=== PATIENT | male | born 1955 | race Two or more races ===

== ENCOUNTER 2025-07-23 20:46 | Inpatient (IN) | payer MEDICAID, OTHER ==
[~2025-07-23] VITALS: Ht 180.3 cm; Wt 90.7 kg
[2025-07-23 21:49] LABS: CALCIUM, SERUM 8.7 mg/dL (8.5-10.1); CREATININE 0.9 mg/dL (0.6-1.3); SODIUM SERUM 144 mmol/L (136-145); UREA NITROGEN, BLOOD 12 mg/dL (7-18)
[2025-07-23] MEDS ORDERED: OLANZAPINE 10 MG VIAL IM ONE (21:59)
[2025-07-23 22:00] LABS: PLATELET COUNT (AUTO) 280 K/uL (150-450); RED BLOOD CELL COUNT(AUTO) 4.40 MIL/uL (4.5-6.0); RED CELL DISTRIBUTION WIDTH 16.5 % (11.5-15.0); WHITE BLOOD COUNT (AUTO) 9.3 K/uL (4.3-11.0)
[2025-07-23 22:02] LABS: ASPARTATE AMINOTRANSFERASE 16 U/L (15-37); TOTAL PROTEIN, SERUM 6.5 g/dL (6.4-8.2)
[2025-07-23] MEDS: OLANZAPINE 10 MG VIAL IM ONE (22:09)
[2025-07-23 22:30] LABS: APPEARANCE,URINE CLEAR (CLEAR); BLOOD, URINE NEGATIVE Ery/uL (NEGATIVE); LEUKOCYTE ESTERASE ,URINE NEGATIVE (NEGATIVE); NITRITE, URINE NEGATIVE (NEGATIVE); UGLUCOSE NEGATIVE (NEGATIVE)
[2025-07-23] MEDS ORDERED: QUET50TA PO (22:31)
[2025-07-23] MEDS ORDERED: FINA5TAB11 PO (22:31)
[2025-07-23] MEDS ORDERED: LEVO75TA7 PO (22:31)
[2025-07-23] MEDS ORDERED: FOLI0.4T6 PO (22:31)
[2025-07-23] MEDS ORDERED: HALO50AM2 IM (22:31)
[2025-07-23] MEDS ORDERED: ACET325T53 PO (22:31)
[2025-07-23] MEDS ORDERED: DIVA125C5 PO (22:31)
[2025-07-23] MEDS ORDERED: ATOR40TA PO (22:31)
[2025-07-23] MEDS ORDERED: BENZ1TAB7 PO (22:31)
[2025-07-23 22:37] LABS: AMPHETAMINE, URINE NEGATIVE (NEGATIVE); BARBITURATE, URINE NEGATIVE (NEGATIVE); BENZODIAZEPINE, URINE NEGATIVE (NEGATIVE); CANNABINOID, URINE NEGATIVE (NEGATIVE); COCCAINE, URINE NEGATIVE (NEGATIVE); OPIATE, URINE NEGATIVE (NEGATIVE)
[2025-07-24] MEDS ORDERED: TAMS-12 PO (03:23)
[2025-07-24] MEDS ORDERED: FOLI0.4T6 PO (03:25)
[2025-07-24] MEDS ORDERED: HALO5TAB PO (03:28)
[2025-07-24] MEDS ORDERED: TEMAZEPAM 7.5 MG CAPSULE PO PRN (03:30)
[2025-07-24] MEDS ORDERED: ACETAMINOPHEN 325 MG TABLET PO PRN (03:30)
[2025-07-24] MEDS ORDERED: MAG HYDROX/AL HYDROX/SIMETH 30 ML UDC PO PRN (03:30)
[2025-07-24] MEDS ORDERED: MAGNESIUM HYDROXIDE 30 ML UDC PO PRN (03:30)
[2025-07-24] MEDS ORDERED: LORAZEPAM 1 MG TABLET PO PRN (03:30)
[2025-07-24] MEDS: BLOOD SUGAR DIAGNOSTIC 1 EACH STRIP IN ONE (04:08)
[2025-07-24] MEDS ORDERED: ERYTHROMYCIN BASE OPHTH 3.5 GM TUBE EACHEYE SCH (11:30)
[2025-07-24] MEDS: LORAZEPAM 1 MG TABLET PO PRN (12:42)
[2025-07-24] MEDS: BENZTROPINE MESYLATE (1 MG) 1 MG TABLET PO SCH (13:42)
[2025-07-24 16:00] VITALS: BP 107/68; TEMP 98.3; O2SAT 100
[2025-07-24] MEDS: OLANZAPINE 10 MG VIAL IM PRN (19:28)
[2025-07-24 21:00] VITALS: BP 115/70; TEMP 98; O2SAT 99
[2025-07-25 08:00] VITALS: BP 139/78; TEMP 97.8; O2SAT 98
[2025-07-25 08:02] LABS: PLATELET COUNT (AUTO) 312 K/uL (150-450); RED BLOOD CELL COUNT(AUTO) 4.93 MIL/uL (4.5-6.0); RED CELL DISTRIBUTION WIDTH 16.6 % (11.5-15.0); WHITE BLOOD COUNT (AUTO) 8.3 K/uL (4.3-11.0)
[2025-07-25 08:18] LABS: CALCIUM, SERUM 8.9 mg/dL (8.5-10.1); CREATININE 0.9 mg/dL (0.6-1.3); SODIUM SERUM 145.0 mmol/L (136-145); UREA NITROGEN, BLOOD 18.0 mg/dL (7-18)
[2025-07-25 08:25] LABS: LDL 39.0 mg/dL (0-99)
[2025-07-25 08:40] LABS: VALPROIC ACID 7.0 ug/mL (50-100)
[2025-07-25] MEDS ORDERED: DIVA125T32 PO (11:45)
[2025-07-25 16:14] VITALS: BP 143/76; TEMP 98.6; O2SAT 99
[2025-07-25] MEDS: LORAZEPAM 1 MG TABLET PO PRN (18:14)
[2025-07-25] MEDS: DIVALPROEX SODIUM 125 MG CAP.SPRINK PO SCH (20:25)
[2025-07-25 22:04] VITALS: BP 147/80; TEMP 98.6; O2SAT 97
[2025-07-26 08:00] VITALS: BP 149/87; TEMP 98.3; O2SAT 100
[2025-07-26] MEDS: ERYTHROMYCIN BASE OPHTH 3.5 GM TUBE EACHEYE SCH (13:00)
[2025-07-26 16:00] VITALS: BP 139/74; TEMP 98.2; O2SAT 99
[2025-07-26 20:18] VITALS: BP 111/78; TEMP 99; O2SAT 100
[2025-07-27 08:00] VITALS: BP 154/85; TEMP 97.5; O2SAT 100
[2025-07-27 16:00] VITALS: BP 157/85; TEMP 97.9; O2SAT 100
[2025-07-27] MEDS: LORAZEPAM INJ 2 MG/ML VIAL IM STA (17:33)
[2025-07-27] MEDS: HALOPERIDOL LACTATE INJ 5 MG/ML VIAL IM STA (17:33)
[2025-07-28 08:00] VITALS: BP 152/83; TEMP 97.8; O2SAT 97
[2025-07-28 16:11] VITALS: BP 127/82; TEMP 98.1; O2SAT 98
[2025-07-28] MEDS: TEMAZEPAM 7.5 MG CAPSULE PO PRN (23:08)
[2025-07-29 08:00] VITALS: BP 122/69; TEMP 98.7; O2SAT 98
[2025-07-29] MEDS ORDERED: ACETAMINOPHEN 325 MG TABLET PO PRN (15:00)
[2025-07-29 16:00] VITALS: BP 161/84; TEMP 98.8; O2SAT 100
[2025-07-30] MEDS: LEVOTHYROXINE SODIUM 75 MCG TABLET PO SCH (06:36)
[2025-07-30] MEDS: LORAZEPAM INJ 2 MG/ML VIAL IM ONE (08:14)
[2025-07-30] MEDS: HALOPERIDOL LACTATE INJ 5 MG/ML VIAL IM ONE (08:14)
[2025-07-30] MEDS: FINASTERIDE (5 MG) 5 MG TABLET PO SCH (09:00)
[2025-07-30] MEDS: FOLIC ACID 1 MG TABLET PO SCH (09:00)
[2025-07-30] MEDS: TAMSULOSIN 0.4 MG CAP.SR.24H PO SCH (09:00)
[2025-07-30] MEDS: ATORVASTATIN 40 MG TABLET PO SCH (09:00)
[2025-07-30] MEDS: BENZTROPINE MESYLATE (1 MG) 1 MG TABLET PO SCH (09:00)
[2025-07-30 16:00] VITALS: BP 148/76; TEMP 98.2; O2SAT 99
[2025-07-30] MEDS: DIVALPROEX SODIUM 125 MG CAP.SPRINK PO SCH (20:36)
[2025-07-31 08:00] VITALS: BP 157/84; TEMP 97.7; O2SAT 95
[2025-07-31] MEDS ORDERED: ERYTHROMYCIN BASE OPHTH 3.5 GM TUBE EACHEYE SCH (11:30)
[2025-07-31 16:00] VITALS: BP 128/79; TEMP 98; O2SAT 99
[2025-07-31 20:24] VITALS: BP 150/92; TEMP 98.2; O2SAT 100
[2025-08-01 08:00] VITALS: BP 151/75; TEMP 98.7; O2SAT 97
[2025-08-01 16:00] VITALS: BP 109/58; TEMP 98.8; O2SAT 99
[2025-08-01 20:36] VITALS: BP 113/64; TEMP 98.8; O2SAT 97
[2025-08-02 08:00] VITALS: BP 144/78; TEMP 98.1; O2SAT 99
[2025-08-02 16:00] VITALS: BP 114/85; TEMP 98; O2SAT 100
[2025-08-02 20:00] VITALS: BP 150/83; TEMP 98.4; O2SAT 96
[2025-08-03 08:00] VITALS: BP 132/86; TEMP 98; O2SAT 98
[2025-08-03] MEDS: POLYVINYL ALCOHOL 15 ML BOTTLE LEFTEYE SCH (09:00)
[2025-08-03] MEDS: POLYVINYL ALCOHOL 15 ML BOTTLE EACHEYE SCH (13:00)
[2025-08-03 16:00] VITALS: BP 111/60; TEMP 98.8; O2SAT 98
[2025-08-03 20:11] VITALS: BP 144/76; TEMP 98.1; O2SAT 99
[2025-08-04] MEDS: ERYTHROMYCIN BASE OPHTH 3.5 GM TUBE EACHEYE SCH (11:22)
[2025-08-04 16:11] VITALS: BP 118/68; TEMP 98.1; O2SAT 98
[2025-08-04 20:09] VITALS: BP 128/72; TEMP 98.6; O2SAT 98
[2025-08-04] MEDS: DIVALPROEX SODIUM 125 MG CAP.SPRINK PO SCH (20:24)
[2025-08-05 07:44] VITALS: BP 146/68; TEMP 98.1; O2SAT 95
[2025-08-05 08:00] VITALS: BP 146/68; TEMP 98.1; O2SAT 95
[2025-08-05 15:58] VITALS: BP 122/55; TEMP 98.1; O2SAT 98
[2025-08-05 16:00] VITALS: BP 122/55; TEMP 98.1; O2SAT 98
[2025-08-05 20:13] VITALS: BP 124/88; TEMP 97.8; O2SAT 99
[2025-08-06 08:00] VITALS: BP 118/73; TEMP 97.8; O2SAT 100
[2025-08-06 16:00] VITALS: BP 105/69; TEMP 97.9; O2SAT 98
[2025-08-06] MEDS: BENZTROPINE MESYLATE (1 MG) 1 MG TABLET PO SCH (16:32)
[2025-08-06 19:41] VITALS: BP 117/70; TEMP 98; O2SAT 99
[2025-08-07 16:00] VITALS: BP 132/74; TEMP 98.8; O2SAT 96
[2025-08-07 20:00] VITALS: BP 124/76; TEMP 98.4; O2SAT 96
[2025-08-08 08:00] VITALS: BP 117/74; TEMP 98; O2SAT 98
[2025-08-08] MEDS: OLANZAPINE 10 MG VIAL IM PRN (09:05)
[2025-08-08 16:00] VITALS: BP 106/67; TEMP 97.9; O2SAT 100
[2025-08-08 19:56] VITALS: BP 122/69; TEMP 98.2; O2SAT 96
[2025-08-09 08:07] VITALS: BP 138/84; TEMP 97.5; O2SAT 99
[2025-08-09 16:00] VITALS: BP 100/56; TEMP 98.2; O2SAT 99
[2025-08-09 20:40] VITALS: BP 142/74; TEMP 98.2; O2SAT 98
[2025-08-09] MEDS: DIVALPROEX SODIUM 125 MG CAP.SPRINK PO SCH (22:58)
[2025-08-10 08:00] VITALS: BP 141/83; TEMP 98.7; O2SAT 98
[2025-08-10 16:00] VITALS: BP 119/86; TEMP 98.7; O2SAT 99
[2025-08-10 20:08] VITALS: BP 138/94; TEMP 98.6; O2SAT 96
[2025-08-11 08:31] VITALS: BP 159/92; TEMP 97.8; O2SAT 98
[2025-08-11 13:38] VITALS: BP 165/95
[2025-08-11] MEDS: CLONIDINE HCL 0.1 MG TABLET PO ONE (13:38)
[2025-08-11] MEDS: LORAZEPAM INJ 2 MG/ML VIAL IM ONE (13:51)
== END 2025-08-11 15:55 | DRG 761 ==
LOC: ER 21:07 → GPS 07-24 02:33
PROVIDERS: ADMIT Registered Nurse; ATTEND Nurse Practitioner Acute Care
DX: F25.9 Schizoaffective disorder, unspecified (principal); E44.1 Mild protein-calorie malnutrition; E88.09 Other disorders of plasma-protein metabolism, not elsewhere classified; F03.92 Unspecified dementia, unspecified severity, with psychotic disturbance; F29 Unspecified psychosis not due to a substance or known physiological condition; D63.8 Anemia in other chronic diseases classified elsewhere; H10.9 Unspecified conjunctivitis; E66.9 Obesity, unspecified; Z20.822 Contact with and (suspected) exposure to COVID-19; Z73.6 Limitation of activities due to disability; Z91.199 Patient's noncompliance with other medical treatment and regimen due to unspecified reason; Z79.899 Other long term (current) drug therapy; Z79.890 Hormone replacement therapy; H04.129 Dry eye syndrome of unspecified lacrimal gland; Z68.27 Body mass index [BMI] 27.0-27.9, adult
CPT/HCPCS: 36415; 80048-TC; 80061-TC; 80076-TC; 80164-TC; 85025-TC; 87081-TC; 97112-TC; 97116-TC; 97530-TC; J1200; J1630; J2060; J3490